=== PATIENT | male | born 1970 | race Caucasian/White ===

== ENCOUNTER → 2017-12-28 14:13 | Outpatient (CLI) | payer OTHER, SELFPAY ==
--- NOTE | 2017-12-28 14:21 | XR_ITS ---
XR chest 2V HISTORY: ITS.REASON: DYSHIDIROSIS,[facility] ORDERING PHYSICIAN: Jordan Lau PATIENT AGE: 47 years COMPARISON: None FINDINGS: The cardiomediastinal silhouette and pulmonary vascularity are within normal limits. The lungs are clear without infiltrates, suspicious nodules, or pleural effusions. A small nodular density overlies the left lung base at 7 mm and could be due to nipple shadow. IMPRESSION: No acute finding. Possible nipple shadow left lower lung zone which may be confirmed with follow-up
== END ==
PROVIDERS: Visit Provider Physician Assistant
DX: Z79.899 Other long term (current) drug therapy (principal); L30.1 Dyshidrosis [pompholyx]
CPT/HCPCS: 71046

== ENCOUNTER 2019-07-10 14:41 | Emergency (ER) | payer OTHER, SELFPAY ==
[2019-07-10 14:46] VITALS: BP 147/96; PULSE 86; RESP 19; TEMP 36.8; O2SAT 99; BMI 31.9
--- NOTE | 2019-07-10 14:56 | XR_ITS ---
PROCEDURE: XR CHEST 2V CLINICAL HISTORY: COUGH Cough and sore throat COMPARISON: CXR2V XR chest 2V from 12/28/2017 CXR1VP XR chest portable from 03/08/2018 FINDINGS: The cardiomediastinal silhouette and pulmonary vascularity are within normal limits. The lungs are clear without infiltrates, suspicious nodules, or pleural effusions. No acute bony abnormalities. IMPRESSION: No acute findings. Dictated by: Kaleb Newton MD 07/10/2019 15:31 Electronically signed by Kaleb Newton MD in [place] 07/10/2019 15:31
--- NOTE | 2019-07-10 14:59 | HMH.EDUTC ---
[facility] [place] Impression: Viral upper respiratory illness Disposition: Home, Self-Care Condition on Discharge: Good Instructions: Preventing the Spread of Coronavirus Discharge Instructions, DI for Viral Upper Respiratory Infection -- Adult, Common Cold, Sore Throat Additional Instructions: NO work until COVID19 test back and negative *Make sure that you are drinking plenty of fluids and rest You was given cardiopulmonary technologist out with instructions for self quarantine while waiting on your result and what to do if your results show positive *Monitor Temp, Over the counter Motrin or Tylenol as directed/as needed Tylenol every 4 hours and Motrin every 6 hours (as long as your family doctor has told you that you can take it) for fever or pain. and straight to ER if unable to lower temp less than 101.0 after medication given *Warm salt water gargles may help to soothe the throat *Throat Lozenges *Warm fluids *Sleep elevated *Humidifier/Vaporizer Your throat swab was sent for culture. Those results are typically sent to your primary care. Be sure to follow up in 2-3 days with your family doctor/primary care physician if no improvement so they can review those result and treat if necessary. If you don?t have a primary care doctor, I recommend you get one but in the mean time, you will have to return to a walk in clinic Follow up IMMEDIATELY for new or worsening symptoms or no Noticeable improvement over the next 48-72 hours. 911 for difficulty breathing or swallowing Referrals: Provider,Referral, [Primary Care Provider] - Forms: Work/School Release Medical Decision Making - Omega Inquiry Pt receiving controlled substance: No Omega was queried for this patient: No Vital Signs: 07/10/19 14:46 Temperature 98.2 F Temperature Source Oral Pulse Rate [Right Brachial] 86 Respiratory Rate 19 Blood Pressure [Right Arm] 147/96 H Blood Pressure Mean [Right Arm] 113 Blood Pressure Source [Right Arm] Automatic Cuff Blood Pressure Position [Right Arm] Sitting 02 Sat by Pulse Oximetry 99 Oxygen Delivery Method Room Air - Lab Data Lab results reviewed: Yes: I reviewed the patient's lab results. Lab Results 07/10/19 14:46: Influenza Type A Ag Negative, Influenza Type B Ag Negative 07/10/19 14:46: Strep Scn Rapid Clinic Negative Orders (Tests/Meds): ORDERS Category Date Time Status CXR 2 view (NOT portable) [XR chest 2V] Stat Exams 07/10/19 14:56 Taken Strep Screen Confirmation Stat Micro 07/10/19 14:46 Received - Radiology Data #1 Image(s): Chest Image Reviewed: Yes I reviewed the patient's radiology image w/the ED provider Preliminary Findings: Normal/NAD [facility] [place] - General Stated complaint: sore throat,cough,fever Time Seen by Provider: 07/10/19 14:59 Mode of Arrival: Ambulatory Source of Information: Patient Limitations: No Limitations Description of Symptoms (Recalled from Triage Doc. by RN): Pt c/o sore throat, cough and fever for 4 days HEENT Symptoms (Recalled from RN notes): No Resp Symptoms (Recalled from RN notes): Yes Skin Symptoms (Recalled from RN notes): No MS Symptoms (Recalled from RN notes): No Functional Status (Recalled from RN notes): na - History of Present Illness Provider Complaint: Patient states that he is an everyday smoker and has been around someone at work that recently traveled from [place] and for the last 4 days he has been having low grade fever, cough, and sore throat and state that recently started having fever also so work made him come in and wanted him to get tested for COVID19 before being able to return to work - Related Data Home Medications Medication Instructions Recorded Confirmed Fexofenadine/Pseudoephedrine 1 each PO DAILY 11/16/17 11/16/17 [Elana-D 24 Hour Tablet] diphenhydrAMINE HCL [Benadryl] 25 mg PO DAILY 11/16/17 11/16/17 Previous Rx's Medication Instructions Recorded Amoxicillin/Potassium Clav 1 tab PO BID 5 Days
[2019-07-10 15:08] LABS: UTC Influenza A Antigen Negative (Negative); UTC Influenza B Antigen Negative (Negative); UTC Strep Screen (Rapid) Negative (Negative)
[2019-07-10 15:33] VITALS: BP 142/70; PULSE 70; RESP 16; TEMP 36.9; O2SAT 98
[2019-07-13 07:46] LABS: Covid-19 Nasal PCR Sendout Lex Not Detected
--- NOTE | 2019-07-13 12:26 | PC.NURSE ---
pt notified of negative covid -19 test at this time
== END 2019-07-10 15:36 | disposition home or self-care (01) ==
PROVIDERS: Emergency Provider Nurse Practitioner
DX: J06.9 Acute upper respiratory infection, unspecified (principal); F17.210 Nicotine dependence, cigarettes, uncomplicated; Z88.2 Allergy status to sulfonamides; I10 Essential (primary) hypertension
CPT/HCPCS: 71046; 87804; 87880; 99202; U0004

== ENCOUNTER 2019-10-24 10:29 | Emergency (ER) | payer OTHER, SELFPAY ==
[2019-10-24 10:37] VITALS: BP 146/116; PULSE 86; RESP 15; TEMP 36.7; O2SAT 98; BMI 30.2
--- NOTE | 2019-10-24 10:39 | ECG_ITS ---
APPROVED REPORT Exam: Resting ECG HR:78 bpm ECG Measurements Heart Rate 78 AXES TX 194 P 56 QRSd 96 QRS 68 QT 358 T 39 QTc 408 <Conclusion> Normal sinus rhythm Normal ECG Electronically signed by : Héctor Harrell, 10/25/2019 06:34:01
--- NOTE | 2019-10-24 10:41 | XR_ITS ---
PROCEDURE: XR CHEST 2V CLINICAL HISTORY: chest pain COMPARISON: CR CXR2V XR chest 2V from 12/28/2017 CR CXR1VP XR chest portable from 03/08/2018 CR XR CHEST 2V from 07/10/2019 FINDINGS: The cardiomediastinal silhouette and pulmonary vascularity are within normal limits. The lungs are clear without infiltrates, suspicious nodules, or pleural effusions. No acute bony abnormalities. IMPRESSION: No acute findings. Dictated by: Kaleb Newton MD 10/24/2019 11:37 Kaleb Newton MD in [place] 10/24/2019 11:37
--- NOTE | 2019-10-24 10:41 | HMH.EDGENADL ---
ED Disposition Clinical Impression: Chest pain, exertional Hypertension Qualifiers: Hypertension type: unspecified Qualified Code(s): I10 - Essential (primary) hypertension Disposition: Home, Self-Care Condition on Discharge: Good Instructions: Treatments for High Blood Pressure: More Than Just Taking a Pill, DI for Chest Pain Additional Instructions: You have been evaluated for chest pain. Please follow-up with cardiology, Jean-Pierre Parra and Dr. Chavez tomorrow morning in clinic at 9 AM. Start taking Norvasc 5 mg daily. Return to the emergency department if you have any new or worsening pain. Prescriptions: Amlodipine Besylate [Norvasc 5mg tablet] 5 mg PO DAILY #30 tab Transmission Status: Received by [facility] #[id number] Referrals: PCP,No [Primary Care Provider] - Forms: Work/School Release Time of Disposition: 13:20 - Critical Care Critical Care Time: No Attestation: On , the high probability of a clinically significant, sudden or life threatening deterioration of the following system(s) required my full and direct attention, intervention and personal management. The time I documented below is in addition to time spent performing reported procedures but includes the following listed in this critical care notation. Medical Decision Making - Medical Records Medical records reviewed: Yes: I reviewed the patient's medical records. - Omega Inquiry Pt receiving controlled substance: No Vital Signs: 10/24/19 10:37 10/24/19 11:01 10/24/19 12:17 Temperature 98.0 F Temperature Source Oral Pulse Rate Pulse Rate [Right Brachial] 86 78 78 Respiratory Rate 15 20 Blood Pressure Blood Pressure [Right Arm] 146/116 H 134/106 H 157/111 H Blood Pressure Mean [Right Arm] 126 115 126 Blood Pressure Source [Right Arm] Automatic Cuff Automatic Cuff Blood Pressure Position [Right Arm] Sitting Sitting 02 Sat by Pulse Oximetry 98 96 98 Oxygen Delivery Method Room Air Room Air 10/24/19 12:30 10/24/19 13:00 10/24/19 13:25 Temperature 98.3 F Temperature Source Oral Pulse Rate 75 Pulse Rate [Right Brachial] 76 75 Respiratory Rate 15 15 Blood Pressure 131/96 H Blood Pressure [Right Arm] 143/112 H 131/96 H Blood Pressure Mean [Right Arm] 122 107 Blood Pressure Source [Right Arm] Blood Pressure Position [Right Arm] 02 Sat by Pulse Oximetry 96 96 Oxygen Delivery Method Room Air Room Air - Lab Data Lab Results 10/24/19 10:40: WBC 10.8, RBC 5.10, Hgb 17.3, Hct 50.3, MCV 98.6 H, MCH 34.0 H, MCHC 34.5, RDW 12.9, Plt Count 231, MPV 7.3 L, Neut % (Auto) 74.5, Lymph % (Auto) 17.1, [place] % (Auto) 4.4, Eos % (Auto) 3.3, Baso % (Auto) 0.6, Neut # (Auto) 8.0 H, Lymph # (Auto) 1.9, [place] # (Auto) 0.5, Eos # (Auto) 0.4, Baso # (Auto) 0.1 10/24/19 10:40: D-Dimer 0.44 10/24/19 10:40: Sodium 137, Potassium 4.5, Chloride 103, Carbon Dioxide 26, Anion Gap 12.5, BUN 16, Creatinine 1.10, Estimated Creat Clear 107, Estimated GFR 71, Est GFR ( Amer) 86, Glucose 99, Calcium 9.5, Troponin I < 0.01 10/24/19 12:42: Troponin I < 0.01 Result diagrams: 10/24/19 10:40 10/24/19 10:40 Orders (Tests/Meds): ORDERS Category Date Time Status Troponin I Q3H Lab 10/24/19 16:45 Ordered ECG Request by /Nse Stat Y 10/24/19 10:43 Ordered - ECG Data Tracing #1 Sinus rhythm with ventricular rate of 78 bpm. QRS 96, QTc 408. No ischemia or arrhythmia. - CARRIE Score for Non-Stemi Age of Patient: 40-49 years old Heart Rate: 70-89 bpm Systolic Blood Pressure: 140-159 mmHg Serum Creatinine: 0.80-1.19 mg/dl CHF Killip Class: I-No CHF Other Risk Factors: None Non-Stemi Risk Score: 65 Medical Decision Narrative: 49-year-old male presenting to the emergency department with chest pain. Patient is clinically stable on arrival. He is hypertensive with elevated diastolic greater than 115. Pain is dull at this time. Concern for ACS. Plan to obtain CBC, CMP, troponin profile, chest x-
[2019-10-24 10:48] LABS: Basophils # 0.1 K/mm3 (0-0.2); Basophils % 0.6 % (0.1-2.0); Eosinophils # 0.4 K/mm3 (0.0-0.4); Eosinophils % 3.3 % (0.1-12.0); Hematocrit 50.3 % (42.0-52.0); Hemoglobin 17.3 g/dL (14.1-18.0); Lymphocytes # 1.9 K/mm3 (0.7-4.5); Lymphocytes % 17.1 % (10-50); Mean Corpuscular HGB Conc 34.5 g/dL (31.8-35.4); Mean Corpuscular Volume 98.6 fl (80-94); Mean Platelet Volume 7.3 fl (7.4-10.4); Monocytes # 0.5 K/mm3 (0.1-1.0); Monocytes % 4.4 % (1.7-9.3); Neutrophils % 74.5 % (37.0-80.0); Platelet Count 231 K/mm3 (142-424); Red Cell Distribution Width 12.9 % (11.5-17.5); White Blood Count 10.8 K/mm3 (4.8-10.8)
[2019-10-24 11:00] LABS: Anion Gap 12.5 mEq/L (5-15); Blood Urea Nitrogen 16 mg/dl (9-20); Calcium 9.5 mg/dl (8.4-10.2); Carbon Dioxide 26 mmol/L (22.0-30.0); Chloride 103 mmol/L (98-107); Creatinine Clearance Estimated 107 mL/min (50-200); Estimated Glomerular Filt Rate 71 ml/min (>60); GFR (African American) 86 ML/MIN (>60); Glucose 99 mg/dl (74-100); Potassium 4.5 mmoL/L (3.5-5.1); Sodium 137 mmol/L (136-145)
[2019-10-24 11:01] VITALS: BP 134/106; PULSE 78; O2SAT 96
[2019-10-24 11:05] LABS: D-Dimer 0.44 ug/mL (0.15-8.0)
--- NOTE | 2019-10-24 11:09 | PC.NURSE ---
Pt back from radiology at this time. Pt given water to drink.
[2019-10-24 11:14] LABS: Troponin I < 0.01 ng/ml (0.00-0.034)
--- NOTE | 2019-10-24 12:12 | PC.NURSE ---
Pt resting at this time. Updated on plan of care.
--- NOTE | 2019-10-24 12:13 | PC.NURSE ---
attempted to call cardioology for consult. office is out to lunch
--- NOTE | 2019-10-24 12:14 | PC.NURSE ---
Assisted patient to bathroom
[2019-10-24 12:17] VITALS: BP 157/111; PULSE 78; RESP 20; O2SAT 98
[2019-10-24 12:30] VITALS: BP 143/112; PULSE 76; RESP 15; O2SAT 96
--- NOTE | 2019-10-24 12:30 | PC.NURSE ---
2nd troponin drawn and to lab for resulting. pt and family updated on plan of care, denies questions or concerns.
--- NOTE | 2019-10-24 12:41 | PC.NURSE ---
2nd troponin collected and sent to lab
[2019-10-24 13:00] VITALS: BP 131/96; PULSE 75; O2SAT 96
--- NOTE | 2019-10-24 13:08 | PC.NURSE ---
dr young consulting with misti kee concerning patient at this time.
[2019-10-24 13:16] LABS: Troponin I < 0.01 ng/ml (0.00-0.034)
--- NOTE | 2019-10-24 13:22 | PC.NURSE ---
Cardiology stated patient could follow up in the office tomorrow morning.
[2019-10-24 13:25] VITALS: BP 131/96; PULSE 75; RESP 15; TEMP 36.8; O2SAT 99
== END 2019-10-24 13:37 | disposition home or self-care (01) ==
PROVIDERS: Emergency Provider Emergency Medicine
DX: R42 Dizziness and giddiness (principal); R07.9 Chest pain, unspecified; I10 Essential (primary) hypertension; F17.210 Nicotine dependence, cigarettes, uncomplicated; Z88.2 Allergy status to sulfonamides; Z90.09 Acquired absence of other part of head and neck
CPT/HCPCS: 71046; 80048; 84484; 85025; 85378; 93005; 99284

== ENCOUNTER → 2019-12-06 14:51 | Outpatient (CLI) | payer OTHER, SELFPAY ==
--- NOTE | 2019-12-06 14:51 | CT_ITS ---
PROCEDURE: CT CHEST WO CON CLINICAL INDICATION: HTN, CP, smoker chest pain, soa current smoker no prior COMPARISON: No exams were available for comparison TECHNIQUE: Axial images obtained with sagittal and coronal reformats. All CT scans at the facility use one or more dose reduction, viz: automated exposure control, ma/kV adjustment per patient size (including targeted exams where dose is matched to indication, i.e. head), or iterative reconstruction technique. FINDINGS: There is mild prominence of the supravalvular portion of the ascending aorta at 4.3 cm in maximum transverse dimension. Coronary artery calcifications are present. There are small mediastinal lymph nodes. No dominant adenopathy or mediastinal mass evident. There is mild prominence of the interstitial markings with a mild diffuse reticular pattern. No suspicious nodules are evident. There is a small fissural nodule on the left superiorly at approximately 8 mm and may represent a small fissural lymph node. Small fissural nodule also noted on the right at 6 mm. No lobar consolidation or collapse. Upper abdominal images show a 1.5 cm hypodense nodule in the left hepatic lobe segment 2 which is indeterminate. This No acute bony findings. IMPRESSION: 1. There is mild prominence of the interstitium with a mild diffuse reticular pattern. This is nonspecific with a vast differential diagnosis including post infectious, collagen vascular this disorders, medial pathic, inhalational lung disease, UIP. 2. Mild dilatation of the supravalvular portion of the ascending aorta at 4.3 cm. 3. Indeterminate 1.5 cm hypodense liver lesion in the left hepatic lobe. MRI without and with contrast may better evaluate. Differential would include hemangioma or neoplasm Dictated by: Kaleb Newton MD 12/07/2019 08:55 Kaleb Newton MD in [place] 12/07/2019 08:55
--- NOTE | 2019-12-06 14:53 | CA_ITS ---
APPROVED REPORT EXAM: Comprehensive 2D, Doppler, and color-flow Echocardiogram Police Lieutenant Patrol: Jannie Madsen RDCS Ht: 5 ft 9 in Wt: 197lbs BSA: 2.05 BP: 147/103 mmHg Indications: HTN,CAD,SMOKER 2D Dimensions LVOT 2.29 cm (M/F) 1.5-2.5 M-Mode Dimensions RVDd 2.50 cm (0.9-2.6) LA Diam 2.04 cm (1.9-4.0) LVDd 4.83 cm (3.5-5.7) Ao Diam 4.45 cm (2.0-3.7) LVDs 3.79 cm (3.5-5.7) IVSd 0.72 cm (0.6-1.1) PWd 0.89 cm (0.6-1.1) EF (Teich) 43.50% FS 21.50% EDV (Teich) 109.10 mL ESV (Teich) 61.60 mL LV Diastology E Decel Time 237.00 (160-240 msec) E/A Ratio 0.8 MED E' 8.90 (< 7 cm/sec) E'/MED E' Ratio 6.98 (>14) LAT E' 9.30 (<10 cm/sec) E/LAT E' Ratio 6.68 (>14) Mitral Valve MV E Max Gucci. 62.00 (40-130 cm/s) MV A Velocity 74.00 (40-130 cm/s) E/A Ratio 0.84 MV Decel. Time 237.00 (160-240 ms) MV PHT 69.00 ms Left Ventricle Left atrium is mildly enlarged, left ventricle is normal size, there is no concentric left ventricular hypertrophy, visually estimated ejection fraction 55% with no regional wall motion abnormality. Grade 1 diastolic dysfunction seen without tissue Doppler evidence of raise left atrial pressure. Right Ventricle Right atrium and right ventricular normal size and contractility. Aortic Valve Aortic root is enlarged measuring 4.1 cm, aortic valve is probably bicuspid, there is no aortic stenosis or aortic insufficiency. Mitral Valve Mitral valve is grossly normal, there is mild mitral regurgitation. Tricuspid Valve Tricuspid valve is grossly normal, there is mild tricuspid regurgitation, tricuspid regurgitation jet velocity is inadequate for calculation of the right ventricular systolic pressure. Pulmonic Valve Pulmonic valve is poorly visualized. Great Vessels Aortic root is normal size. Pericardium No significant pericardial effusion noted. Conclusion 1. Mildly in the left atrium, normal left ventricular size, mild concentric left ventricular hypertrophy, visually estimated ejection fraction 45% with no regional wall motion abnormality, grade 1 diastolic dysfunction seen without tissue Doppler evidence of raise left atrial pressure. 2. Mildly enlarged aortic root measuring 4.1 cm, aortic valve is likely bicuspid. There is no aortic stenosis or aortic insufficiency. 3. Mild mitral and tricuspid regurgitation. 4. No significant pericardial effusion noted. Electronically signed by : Anoop Licona, 12/08/2019 20:40:16
== END ==
PROVIDERS: Visit Provider Physician Assistant
DX: R07.9 Chest pain, unspecified (principal); I10 Essential (primary) hypertension; F17.200 Nicotine dependence, unspecified, uncomplicated
CPT/HCPCS: 71250; 93306

== ENCOUNTER → 2019-12-13 12:28 | Outpatient (CLI) | payer OTHER, SELFPAY ==
[2019-12-13 14:11] LABS: Alanine Aminotransferase 12 U/L (12-78); Albumin Level 4.7 g/dl (3.5-5.0); Alkaline Phosphatase 78 U/L (38-126); Anion Gap 14.7 mEq/L (5-15); Aspartate Amino Transferase 26 U/L (17-59); Bilirubin,Direct 0.1 mg/dl (0.0-0.4); Bilirubin,Indirect 0.6 mg/dL (0.0-0.9); Bilirubin,Total 0.7 mg/dl (0.2-1.3); Bilirubin,Unconjugated 0.7 mg/dL (0.0-1.1); Blood Urea Nitrogen 11 mg/dl (9-20); Calcium 9.9 mg/dl (8.4-10.2); Carbon Dioxide 27 mmol/L (22.0-30.0); Chloride 104 mmol/L (98-107); Chol/HDL Ratio 4.6 (1-3.5); Cholesterol 194 mg/dl (140-200); Estimated Glomerular Filt Rate 79 ml/min (>60); GFR (African American) 96 ML/MIN (>60); Glucose 77 mg/dl (74-100); HDL Cholesterol 42 mg/dl (40-60); Potassium 4.7 mmoL/L (3.5-5.1); Sodium 141 mmol/L (136-145); Total Protein,Serum 7.4 g/dl (6.3-8.2); Triglycerides 136 mg/dl (30-150); VLDL Cholesterol 27 mg/dL (0-40)
[2019-12-13 14:22] LABS: Direct LDL Cholesterol 131.63 mg/dL (100-129)
== END ==
PROVIDERS: Visit Provider Internal Medicine Cardiovascular Disease
DX: I25.10 Atherosclerotic heart disease of native coronary artery without angina pectoris (principal); R07.9 Chest pain, unspecified; I77.810 Thoracic aortic ectasia; I10 Essential (primary) hypertension
CPT/HCPCS: 36415; 80048; 80061; 80076

== ENCOUNTER → 2020-01-10 06:53 | Outpatient (CLI) | payer OTHER, SELFPAY ==
--- NOTE | 2020-01-10 | CA_ITS ---
APPROVED REPORT Technologist: Terra Monroe, Ht: 5 ft 9 in Wt: 198 lbs BSA: 2.06 m2 Medical History Medications: Metoprolol,,,,, Asa,,,,, MoTRIN,,,,, RoSUVASTATIN,,,,, AVapro,,,,, DuPILUMAB,,,,, Stress Test Details Test: LEXISCAN HR Resting HR: 71 bpm Max Heart Rate (APMHR): 171 bpm Max HR Achieved: 107 bpm Target HR (85% APMHR): 145 bpm % of APMHR: 62 Recovery HR: 80 bpm BP Resting BP: 136.0/98.0 mmHg Max BP: 156.0/92.0 mmHg Recovery BP: 130.0/99.0 mmHg ECG Resting ECG: NSR,EARLY REPOLARIZATION Clinical Reason for Termination: Completed Protocol Exercise duration: 04:02 min Highest Stage Achieved: Exercise capacity: 1.0 METs Stress ECG Conclusion DURING INFUSION PATIENT HAD NO SYMPTOMS. <1.5MM ST SEGMENT CHANGES. NON-DIAGNOSTIC Test Summary . . . . . . Stop exercise at 04:02 . . . . . Electronically signed by : Harley Chavez, 01/14/2020 08:59:54
--- NOTE | 2020-01-10 06:54 | NM_ITS ---
APPROVED REPORT Exam: Nuclear Stress Test Indication: HTN, TOB USE, FM HX, C.P., FATIGUE Patient Location: Outpatient Stress Tech: Bhavana Fer [place] Tech:EPI Rodas RT(R)(N) Ht: 5 ft 9 in Wt: 200 lbs HR: 69 bpm BP: 136/98 mmHg BSA: 2.07 m2 BMI: 29.5 History: HTN, TOB USE, FM HX, C.P., FATIGUE Procedure: Patient received a 0.4 mg of intravenous Lexiscan, resting heart rate 69 bpm, resting blood pressure 136/98 mmHg, with Lexiscan maximum heart rate achived was 80 bpm which is 85 % of the maximum predicted heart rate and blood pressure was 130/99 mmHg. With Lexiscan, patient denied any complaint of chest pain. Cardiac Stress and Resting SPECT Images: Cardiac Stress and Resting SPECT images were obtained using technetium 99m Myoview 30.7 mCi stress and 10.92 mCi at rest. Ejection fraction is low at 47% with mild global hypokinesia No fixed or reversible defects are evident. No evidence of ischemia or infarction. Conclusion: Ejection fraction is low at 47% with mild global hypokinesia No fixed or reversible defects are evident. No evidence of ischemia or infarction. Electronically signed by : Kaleb Newton MD 01/15/2020 17:12:22
== END ==
PROVIDERS: Visit Provider Internal Medicine Cardiovascular Disease
DX: I25.10 Atherosclerotic heart disease of native coronary artery without angina pectoris (principal); I10 Essential (primary) hypertension; I77.810 Thoracic aortic ectasia
CPT/HCPCS: 78452; 93017; A9502; J2785

== ENCOUNTER 2020-10-23 09:04 | Emergency (ER) | payer OTHER, SELFPAY ==
[2020-10-23 09:05] VITALS: BP 128/94; PULSE 78; RESP 18; TEMP 36.6; O2SAT 98; BMI 30.1
--- NOTE | 2020-10-23 09:52 | HMH.EDUTC ---
[facility] [place]ression: Exposure to COVID-19 virus Disposition: Home, Self-Care Condition on Discharge: Good Instructions: Preventing the Spread of Coronavirus Discharge Instructions Additional Instructions: Drink plenty of fluids. Take tylenol for pain or fever. Return if you begin to have difficulty breathing. Follow up with your regular doctor. GO TO THE ER FOR ANY WORSENING SYMPTOMS Quarantine until you know the results of your covid-19 test. If it is positive, the health department should call you and give you further instructions about your length of Quarantine and other things. Notify your school or workplace of your results and follow their instructions regarding return to work/school. Referrals: Provider,Referral, [Primary Care Provider] - Forms: Work/School Release Time of Disposition: 09:53 Medical Decision Making - Medical Records Medical records reviewed: No: I reviewed the patient's medical records. - Omega Inquiry Pt receiving controlled substance: No Orders (Tests/Meds): ORDERS Category Date Time Status Covid-19 Nasal PCR ([facility]) Routine Lab 10/23/20 09:45 [place] [facility] [place] - General Stated complaint: covid test/exposure Time Seen by Provider: 10/23/20 09:52 - History of Present Illness Provider Complaint: His currently has covid-19. He is here to get a covid test. He denies any symptoms so far. - Related Data Home Medications Medication Instructions Recorded Confirmed dupilumab 300 mg/2 mL subcutaneous mg SQ Q2W ml 10/25/19 10/09/20 syringe irbesartan 75 mg tablet 150 mg PO DAILY tab 10/09/20 10/09/20 Previous Rx's Medication Instructions Recorded aspirin 81 mg tablet,delayed 81 mg PO DAILY #90 tab 12/13/19 release rosuvastatin 20 mg tablet 20 mg PO DAILY #90 tab 12/13/19 prednisone 20 mg tablet 20 mg PO BID 5 Days #10 tab 10/09/20 Allergies Allergy/AdvReac Type Severity Reaction Status Date / Time poison rex extract Allergy Verified 10/09/20 11:59 sulfamethoxazole Allergy Verified 10/09/20 11:59 [From Bactrim] trimethoprim [From Bactrim] Allergy Verified 10/09/20 11:59 welding smoke Allergy Intermediate Uncoded 10/09/20 11:59 [facility] History - Hepatitis A Screen Attestation statement:: This patient has been screened for Hepatitis A risk factors. I have reviewed the patient's past medical history: Yes Medical History: Reports:: Hypertension Denies:: Cancer, Diabetes Mellitus Type 1, Diabetes Mellitus Type 2, Internal Pacemaker, MRSA Laterality Cases: Left: Tonsillectomy, Other, Right: Arthroscopy Knee Other Surgeries: No: Pacemaker Amputation: No Comment: wisdom teeth removed - Social History Smoking Status: Current every day smoker Tobacco Type: cigarettes # Packs/Day (cigarettes): 1 Alcohol Intake: never Alcohol Intake Frequency:: a few times a week Occupational Status: employed Household Members: significant other Family Hx:: Non-contributory ROS Obtained: Yes All systems reviewed & no additional complaints - Constitutional Constitutional: Reports system reviewed and no additional complaints, except as docu - Eyes Eyes: Reports system reviewed and no additional complaints, except as docu - ENT Ears, Nose, Mouth, and Throat: Reports system reviewed and no additional complaints, except as docu - Cardiovascular Cardiovascular: Reports system reviewed and no additional complaints, except as docu - Respiratory Respiratory: Reports system reviewed and no additional complaints, except as docu - Gastrointestinal Gastrointestingal: Reports: system reviewed and no additional complaints, except as docu Physical Exam - General General appearance: alert, in no apparent distress - Head Head exam: atraumatic, normocephalic, normal inspection - Eye Eye exam: Present: normal appearance, PERRL, EOMI - ENT ENT exam: Present: normal exam, normal oropharynx, mucous membranes moist, T
[2020-10-23 10:12] VITALS: BP 128/94; PULSE 78; RESP 18; TEMP 36.6; O2SAT 98
== END 2020-10-23 10:13 | disposition home or self-care (01) ==
PROVIDERS: Emergency Provider Nurse Practitioner Family
DX: Z20.822 Contact with and (suspected) exposure to COVID-19 (principal); F17.210 Nicotine dependence, cigarettes, uncomplicated; I10 Essential (primary) hypertension
CPT/HCPCS: 99202; G0463; U0003

== ENCOUNTER → 2021-08-13 07:43 | Outpatient (CLI) | payer OTHER, SELFPAY ==
--- NOTE | 2021-08-13 07:43 | CT_ITS ---
FINAL REPORT TECHNIQUE: Axial images were obtained from the lung apex to the mid abdomen by computed tomography. Coronal reformatted images were obtained. This study was performed with techniques to keep radiation doses as low as reasonably achievable, (ALARA). Individualized dose reduction techniques using automated exposure control or adjustment of mA and/or kV according to the patient''s size were employed. CLINICAL HISTORY: thoracic aortic aneurysm, tobacco use COMPARISON: December 06, 2019 FINDINGS: There is a stable 4.2 cm aneurysm of the ascending aorta. There are stable moderate left coronary artery calcifications. There is no axillary adenopathy. There is no hilar or mediastinal adenopathy. Heart size is normal. There is no pericardial or pleural effusion. Limited images of the upper abdomen are unremarkable. There is a calcified granuloma noted in the left lower lobe. IMPRESSION: Stable ascending aortic aneurysm. No new abnormality identified. Reviewed, Interpreted and Dictated by Chente Longoria III, MD Transcribed by Renate Collazo Authenticated and [facility]
--- NOTE | 2021-08-13 08:06 | CA_ITS ---
APPROVED REPORT EXAM: Comprehensive 2D, Doppler, and color-flow Echocardiogram Lehr Attendant: Cherie Hutchinson CRT Ht: 5 ft 10 in Wt: 215lbs BSA: 2.15 BP: 145/100 mmHg Indications: Hyperlipidemia, Hypertension/HDD, CM, thoracic aneurysm 2D Dimensions LVOT 2.17 cm (M/F) 1.5-2.5 M-Mode Dimensions RVDd 2.81 cm (0.9-2.6) LA Diam 3.15 cm (1.9-4.0) LVDd 4.85 cm (3.5-5.7) Ao Diam 4.92 cm (2.0-3.7) LVDs 3.56 cm (3.5-5.7) IVSd 1.00 cm (0.6-1.1) PWd 0.41 cm (0.6-1.1) EF (Teich) 51.90% FS 26.60% EDV (Teich) 110.20 mL TAPSE 2.39 (<1.7) ESV (Teich) 53.00 mL LV Diastology E Decel Time 233.00 (160-240 msec) E/A Ratio 1.04 MED E' 9.40 (< 7 cm/sec) MED A' 10.30 cm/s E'/MED E' Ratio 6.52 (>14) LAT E' 10.30 (<10 cm/sec) LAT A' 13.00 cm/s E/LAT E' Ratio 5.95 (>14) Aortic Valve AO Peak GR. 4.50 mmHg Mitral Valve MV E Max Gucci. 61.00 (40-130 cm/s) MV A Velocity 59.00 (40-130 cm/s) E/A Ratio 1.04 MV Decel. Time 233.00 (160-240 ms) MV PHT 68.00 ms Pulmonary Valve PV Peak Velocity 89.00 (50-150 cm/s) Tricuspid Valve TR P. Velocity 186.00 cm/s RAP Estimate 10.00 mmHg RVSP 23.90 mmHg Left Ventricle Left atrium is mildly enlarged, left ventricle is normal size, mild concentric left ventricular hypertrophy, estimated ejection fraction 55% with no regional wall motion abnormality. Right Ventricle Right atrium and right ventricle are normal size and contractility. Aortic Valve Aortic root is enlarged measuring 4.9 cm, there is no aortic stenosis, possibility of the bicuspid aortic valve cannot be excluded. There is no aortic insufficiency. Mitral Valve Mitral valve is grossly normal, there is trace mitral regurgitation. Tricuspid Valve Tricuspid grossly normal, there is trace tricuspid regurgitation, tricuspid regurgitation jet velocity is inadequate for calculation of the right ventricular systolic pressure. Pulmonic Valve Pulmonic valve is poorly visualized. Great Vessels Aortic root is enlarged measuring 4.9 cm. Inferior vena cava is poorly visualized. Pericardium No significant pericardial effusion noted. Conclusion 1. Mildly enlarged left atrium, normal left ventricular size, mild concentric left ventricular hypertrophy, estimated ejection fraction 55% with no regional wall motion abnormality, grade 1 diastolic dysfunction seen without tissue Doppler evidence of raise left atrial pressure. 2. Enlarged aortic root measuring 4.9 cm, possibility of bicuspid aortic valve cannot be excluded, there is no aortic stenosis or aortic insufficiency. 3. Trace mitral and tricuspid regurgitation. 4. No significant pericardial effusion. 5. Inferior vena cava is poorly visualized Electronically signed by : Anoop Licona MD 08/13/2021 13:10:56
== END ==
PROVIDERS: Visit Provider Nurse Practitioner Family
DX: I42.9 Cardiomyopathy, unspecified (principal); I25.10 Atherosclerotic heart disease of native coronary artery without angina pectoris; I10 Essential (primary) hypertension; I71.2 Thoracic aortic aneurysm, without rupture; I77.810 Thoracic aortic ectasia; R40.0 Somnolence
CPT/HCPCS: 71250; 93306

== ENCOUNTER 2024-05-03 10:30 | Outpatient (CLI) | payer BC, SELFPAY ==
[2024-05-03 12:49] LABS: Basophils # 0.1 K/mm3 (0-0.2); Basophils % 0.9 % (0.1-2.0); Eosinophils # 0.2 K/mm3 (0.0-0.4); Hematocrit 45.7 % (42.0-52.0); Hemoglobin 15.6 g/dL (14.1-18.0); Lymphocytes # 1.6 K/mm3 (0.7-4.5); Lymphocytes % 20.8 % (10-50); Mean Corpuscular HGB Conc 34.1 g/dL (31.8-35.4); Mean Corpuscular Hemoglobin 32.4 pg (27.0-31.2); Mean Platelet Volume 10.2 fl (7.4-10.4); Monocytes # 0.6 K/mm3 (0.1-1.0); Monocytes % 7.5 % (1.7-9.3); Neutrophils # 5.3 K/mm3 (1.8-7.8); Neutrophils % 67.7 % (37.0-80.0); Platelet Count 237 K/mm3 (142-424); Red Blood Count 4.81 M/mm3 (4.60-6.20); Red Cell Distribution Width 11.9 % (11.5-17.5); White Blood Count 7.9 K/mm3 (4.8-10.8)
[2024-05-03 13:15] LABS: Alanine Aminotransferase 21 U/L (12-78); Albumin Level 4.8 g/dl (3.5-5.0); Alkaline Phosphatase 78 U/L (38-126); Aspartate Amino Transferase 31 U/L (17-59); Bilirubin,Direct 0.2 mg/dl (0.0-0.4); Bilirubin,Indirect 0.6 mg/dL (0.0-0.9); Bilirubin,Total 0.8 mg/dl (0.2-1.3); Bilirubin,Unconjugated 0.6 mg/dL (0.0-1.1); Chol/HDL Ratio 3.8 (1-3.5); Cholesterol 109 mg/dl (140-200); HDL Cholesterol 29 mg/dl (40-60); Magnesium 2.1 mg/dl (1.6-2.3); Total Protein,Serum 6.9 g/dl (6.3-8.2); Triglycerides 194 mg/dl (30-150); VLDL Cholesterol 39 mg/dL (0-40)
[2024-05-03 13:16] LABS: Alanine Aminotransferase 21 U/L (12-78); Albumin Level 4.9 g/dl (3.5-5.0); Albumin/Globulin Ratio 2.5 (1.1-1.8); Alkaline Phosphatase 77 U/L (38-126); Anion Gap 15.5 mEq/L (5-15); Aspartate Amino Transferase 30 U/L (17-59); Bilirubin,Total 0.8 mg/dl (0.2-1.3); Blood Urea Nitrogen 11 mg/dl (9-20); Calcium 9.3 mg/dl (8.4-10.2); Carbon Dioxide 21 mmol/L (22.0-30.0); Chloride 106 mmol/L (98-107); Estimated Glomerular Filt Rate 88 ml/min (>60); GFR (African American) 107 ML/MIN (>60); Glucose 111 mg/dl (74-100); Potassium 4.5 mmoL/L (3.5-5.1); Sodium 138 mmol/L (136-145); Total Protein,Serum 6.9 g/dl (6.3-8.2)
[2024-05-03 13:26] LABS: Direct LDL Cholesterol 53.67 mg/dL (100-129)
[2024-05-03 13:33] LABS: Free T4 (Free Thyroxine) 0.97 ng/dl (0.78-2.19)
[2024-05-03 13:45] LABS: Thyroid Stimulating Hormone 1.94 uIU/mL (0.465-4.68)
[2024-05-08 14:09] LABS: Lyme B. burgdorferi PCR Blood Negative (Negative)
== END 2024-05-03 23:59 | disposition home or self-care (01) ==
LOC: LAB.DROPOF 05-06 10:26
PROVIDERS: Nurse Practitioner Family; PCP Nurse Practitioner Family; Visit Provider Nurse Practitioner Family
DX: E78.5 Hyperlipidemia, unspecified (principal); I11.9 Hypertensive heart disease without heart failure; I25.10 Atherosclerotic heart disease of native coronary artery without angina pectoris; F17.200 Nicotine dependence, unspecified, uncomplicated; I42.9 Cardiomyopathy, unspecified; L30.9 Dermatitis, unspecified; S20.362A Insect bite (nonvenomous) of left front wall of thorax, initial encounter; F17.210 Nicotine dependence, cigarettes, uncomplicated
CPT/HCPCS: 80053; 80061; 80076; 83735; 84439; 84443; 85025; 87476